=== PATIENT | female | born 1975 | race Caucasian/White ===

== ENCOUNTER → 2019-03-11 | Outpatient (CLI) | payer OTHER ==
[~2019-03-11] MED LIST: CLON.5 PO; FLUO10 PO; HYDCHL12.5 PO; IRON150C PO; Naprosyn500 MG PO; Norco 5-325 Ta1 EACH PO; RISP.5 PO
[2019-03-16 16:06] LABS: HPV 16 Negative (Negative); HPV 18 Negative (Negative); HPV OTHER HR TYPES Negative (Negative)
== END ==
LOC: LAB SHORT 19:31 → LAB 19:31
PROVIDERS: Nurse Practitioner Family
DX: Z12.4 Encounter for screening for malignant neoplasm of cervix (principal)
CPT/HCPCS: 87624; G0145

== ENCOUNTER 2019-04-23 13:35 | Day surgery (SDC) | payer OTHER ==
[~2019-04-23] VITALS: Ht 167.6 cm; Wt 92.6 kg
--- NOTE | 2019-04-23 14:07 | NUR ---
INTO [facility] VSS REPORTS NPO ADMISSION STARTED
--- NOTE | 2019-04-23 14:56 | NUR ---
04/23/19 1456 TOÑA SURESH History, Chart, Medications and Allergies reviewed before start of procedure.3-LEAD EKG REVIEWED WITH PHYSICIAN PRIOR TO START OF PROCEDURE.O2 VIA N/C INTACT THROUGHOUT SEDATION/PROCEDURE. MONITOR INTACT WITH CONTINUOUS PULSE OXIMETRY AND INTERMITTENT BP.PATIENT DETERMINED TO BE ASA APPROPRIATE FOR PROPOFOL SEDATION PRIOR TO START OF PROCEDURE BY .
== END 2019-04-23 16:34 | disposition home or self-care (01) ==
LOC: ORSCMMR 13:35 → ORD 15:00 → ORSCMMR 16:34
PROVIDERS: Internal Medicine Gastroenterology
PROC: 0DBM8ZX Excision of Descending Colon, Via Natural or Artificial Opening Endoscopic, Diagnostic (ICD-10-PCS; principal; 2019-04-23 15:00)
DX: R10.30 Lower abdominal pain, unspecified (principal); Z80.0 Family history of malignant neoplasm of digestive organs; D12.4 Benign neoplasm of descending colon; K57.30 Diverticulosis of large intestine without perforation or abscess without bleeding; I10 Essential (primary) hypertension; F32.9 Major depressive disorder, single episode, unspecified; E66.01 Morbid (severe) obesity due to excess calories; Z68.34 Body mass index [BMI] 34.0-34.9, adult
CPT/HCPCS: 88305; J2250; J2704; J7120

== ENCOUNTER → 2022-09-14 | Outpatient (CLI) | payer OTHER ==
[2022-09-14 11:12] LABS: BASOPHILS ABSOLUTE AUTO 0.06 K/mm3 (0.00-0.23); BASOPHILS PERCENT AUTO 1 % (0-2); EOSINOPHILS PERCENT AUTO 1 % (0-6); Hemoglobin 12.7 g/dL (11.5-16.0); IMMATURE GRAN ABSOLUTE AUTO 0.01 K/mm3 (0.00-0.10); IMMATURE GRAN PERCENT AUTO 0 % (0-1); LYMPHOCYTES ABSOLUTE AUTO 2.12 K/mm3 (0.84-5.20); LYMPHOCYTES PERCENT AUTO 27 % (21-46); MONOCYTES ABSOLUTE AUTO 0.45 K/mm3 (0.16-1.47); MONOCYTES PERCENT AUTO 6 % (4-13); Mean Corpuscular HGB 28.2 pg (26.0-34.0); Mean Corpuscular HGB Conc 34.3 g/dL (31.5-36.5); Mean Corpuscular Volume 82 fL (80-100); Mean Platelet Volume 10.3 fL (9.1-12.4); NEUTROPHILS ABSOLUTE AUTO 5.01 K/mm3 (1.96-9.15); NEUTROPHILS PERCENT AUTO 65 % (41-73); Platelet Count 237 K/mm3 (150-400); RDW Standard Deviation 41.1 fL (35.1-46.3); White Blood Cell Count 7.75 K/mm3 (4.00-11.30)
[2022-09-14 12:13] LABS: Albumin, Blood 3.3 g/dL (3.4-5.0); Albumin/Globulin Ratio 0.8 (0.8-1.8); Bilirubin, Total 0.3 mg/dL (0.1-1.0); Bun/Creatinine Ratio 16.8 (12.0-20.0); Calcium, Blood 8.9 mg/dL (8.5-10.1); Creatinine, Blood 0.72 mg/dL (0.40-1.00); Globulin, Blood 4.4 g/dL (2.2-4.0); Potassium, Blood 3.9 mmol/L (3.5-5.5); Total Protein, Blood 7.7 g/dL (6.4-8.2)
== END ==
LOC: LAB SHORT 11:06 → LAB 11:06
PROVIDERS: Emergency Medicine
DX: R10.9 Unspecified abdominal pain (principal)
CPT/HCPCS: 80053; 83690; 85025

== ENCOUNTER 2025-02-03 09:37 | Day surgery (SDC) | payer OTHER ==
[~2025-02-03] VITALS: Ht 167.6 cm; Wt 101.4 kg
[2025-02-03] MEDS ORDERED: FentaNYL Citrate 50 MCG/ML 2 ML Injection ONE (12:14)
[2025-02-03] MEDS ORDERED: Midazolam HCl 1MG / ML 2ML Vial ONE (12:14)
[2025-02-03] MEDS ORDERED: Labetalol HCL 5 MG/ML 4ML Injection (Single Dose) ONE (12:23)
[2025-02-03] MEDS ORDERED: Ondansetron HCl 2 MG / ML 2ML Vial IV ONE ×2 (12:40→14:58)
[2025-02-03] MEDS ORDERED: Dexamethasone Sod Phos 10 MG/ML 1ML VIAL XX ONE (12:40)
[2025-02-03] MEDS ORDERED: Benzocaine Oral Spray 0.5ML UD ONE (13:18)
[2025-02-03] MEDS ORDERED: ePHEDrine Sulfate 50 MG/ML 1ML Injection ONE ×2 (13:21→14:12)
--- NOTE | 2025-02-03 13:37 | NUR ---
02/03/[address] CONSULTED WITH REGARDING PT HIGH BP (SEE VITAL NOTES FOR DETAILS). DR. MANUEL AND AWARE. PT STATES HER PCP TOOK HER OFF HER BP MEDICATION BECAUSE HER BP WAS "NORMAL" FOR MULTIPLE VISITS. 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 PT DENIES HEADACHE, DIZZINESS, AND STATES SHE FEELS HER NORMAL SELF. GAVE PT LABETALOL VIA IV IN PREOP TO BRING HER BP DOWN AND 2MG OF VERSED. AFTER 20 MINS THE PT BP CAME DOWN SLIGHTLY. DISCUSSED THE INCREASE RISK OF STROKE DURING THE SURGERY DO TO THE HIGH BP AND PT STATED SHE WOULD LIKE TO PROCEED WITH SURGERY SCHEDULED.
[2025-02-03] MEDS ORDERED: Sugammadex Sodium 200 MG/2ML SDV (100 MG/ML) ONE (13:51)
[2025-02-03] MEDS ORDERED: HYDROmorphone HCl/Pf 1MG SYR ONE (13:51)
--- NOTE | 2025-02-03 13:51 | NUR ---
02/03/25 1351 Rick Scanlon INFLAMMED SKIN TAG NOTED ON CHEST. THIS DID START TO BLEED WITH PREP.
[2025-02-03] MEDS ORDERED: Lidocaine 1%-Epineph 1:200000 30 ML SDV INJ ONE (13:54)
[2025-02-03] MEDS ORDERED: Dexamethasone Sod Phos 10 MG/ML 1ML VIAL IV ONE (14:58)
[2025-02-03] MEDS ORDERED: Rocuronium Bromide 10 MG/ML 5ML Injection IV ONE (15:07)
[2025-02-03] MEDS ORDERED: SuccINYLCHOLINE Chloride 100 MG/5 ML 5MLSYR ONE (15:07)
--- NOTE | 2025-02-03 15:45 | NUR ---
02/03/25 1545 Sonal Arias RECEIVED REPORT FROM [employer] AND [facility]. PT PLACED ON 2L BNC UPON ARRIVAL PER [facility] VERBAL ORDER. VERBAL ORDER FROM [facility] FOR POST OP FSBS. PT DROWSY, AROUSABLE TO VOICE. PT CURRENTLY FOLLOWS COMMANDS AND ANSWERS QUESTIONS. PT VOIDED, LINENS CHANGED, GOWN CHANGED AND WARM BLANKETS APPLIED. PT CURRENTLY DENIES PAIN OR NAUSEA. [facility] STATES PT CAN BE DISCHARGED HOME IF DIASTOLIC BP IS UNDER 100. FSBS 148 AT 1543.
--- NOTE | 2025-02-03 15:58 | NUR ---
02/03/25 1558 Sonal Arias report given to michael barker
[2025-02-03] MEDS ORDERED: Ondansetron HCl 2 MG / ML 2ML Vial ONE (16:25)
[2025-02-03 16:52] VITALS: BP 179/99
== END 2025-02-03 17:06 | disposition home or self-care (01) ==
LOC: ORSCSDS 09:37
PROVIDERS: Otolaryngology
PROC: 0WB60ZZ Excision of Neck, Open Approach (ICD-10-PCS; principal; 2025-02-03 13:30)
PROC: 0NBX0ZZ Excision of Hyoid Bone, Open Approach (ICD-10-PCS; principal; 2025-02-03 13:30)
PROC: 0NB Head and Facial Bones, Excision (ICD-10-PCS; principal; 2025-02-03 13:30)
DX: Q89.2 Congenital malformations of other endocrine glands (principal); I10 Essential (primary) hypertension; E11.9 Type 2 diabetes mellitus without complications; K21.9 Gastro-esophageal reflux disease without esophagitis; E66.9 Obesity, unspecified; Z68.36 Body mass index [BMI] 36.0-36.9, adult; Z79.84 Long term (current) use of oral hypoglycemic drugs; Z79.899 Other long term (current) drug therapy
CPT/HCPCS: 82947; 88305; 93005; 93010; A9270; J0330; J1100; J1171; J2250; J2405; J2704; J3010; J7120